=== PATIENT | male | born 1950 | race Caucasian/White ===

== ENCOUNTER → 2022-10-11 13:16 | Outpatient (BNVA) | payer MEDICARE, SELFPAY | PROVIDERS: PCP Internal Medicine; Visit Provider Hospitalist | DX: J45.40 Moderate persistent asthma, uncomplicated (principal); J30.9 Allergic rhinitis, unspecified; R91.8 Other nonspecific abnormal finding of lung field; J98.11 Atelectasis | CPT/HCPCS: 99202 ==

== ENCOUNTER 2022-11-15 10:02 | Outpatient (REF) | payer MEDICARE, SELFPAY ==
--- NOTE | 2022-11-15 | PFT_ITS ---
Forced vital capacity 96%, FEV1 102%. FEV1/FVC ratio is 77. [id number] 117% and MVV 91%. Post bronchodilator therapy, there is no significant change. Total lung capacity 93% and residual volume 103%. Diffusion capacity 100% CONCLUSION: Normal pulmonary function test. No restrictive or obstructive airway disorder and no response to bronchodilator therapy. MD YAMILA Dean/[place] / [id number]
== END 2022-11-15 10:03 | disposition home or self-care (01) ==
LOC: HO.RESP 10:02
PROVIDERS: PCP Internal Medicine; Visit Provider Hospitalist
DX: R06.00 Dyspnea, unspecified (principal)
CPT/HCPCS: 94060; 94727; 94729

== ENCOUNTER → 2023-01-06 10:08 | Outpatient (BNVA) | payer MEDICARE, SELFPAY | PROVIDERS: PCP Internal Medicine; Visit Provider Hospitalist | DX: J45.40 Moderate persistent asthma, uncomplicated (principal); J30.9 Allergic rhinitis, unspecified; R91.8 Other nonspecific abnormal finding of lung field; J98.11 Atelectasis; Z79.899 Other long term (current) drug therapy | CPT/HCPCS: 99212 ==

== ENCOUNTER 2024-01-11 09:45 | Outpatient (AMB) | payer MEDICARE, SELFPAY ==
[2024-01-11 09:48] VITALS: PULSE 83; O2SAT 98; BMI 30.3
--- NOTE | 2024-01-11 09:48 | MHC.OFFVIS ---
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 The patient also has a history of pulmonary emboli status post IVC filter after fracturing his lower extremities. This was many years ago. The patient is no longer on anticoagulation. In regards of the breathing started developing worsening shortness of breath and cough. He had been using a Pulmicort inhaler for the asthma and also had a short-acting beta agonist. 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 There were concerns that he was over using the albuterol. However in addition to that he was noted to have asymmetrical wheezing primarily on the left side. Therefore he was referred to Pulmonary. In the meantime he continues to have a cough that was not getting any better and he was evaluated by his primary care doctor sometime in June as well. He had a chest x-ray that I personally reviewed without any acute disease although he does have an area of atelectasis. We went back and look at previous CT scans including a CT scan from [address] scan of the abdomen from 2021. It appears that the left-sided lingular atelectasis has been stable and unchanged. Patient also has other pulmonary nodules that have not changed during that visit the patient also was given benzonatate with good response helping his cough overall. Right now he is feeling better although recently he was exposed to a sick contact in now having nasal congestion and has been feeling sickly. He did have a COVID testing was negative. He is now feeling a little better. He does cough up some mucus but is clear. On examination he sounds pretty clear I do not hear any wheezing at this time. Based on the fact that his CT scan has been stable with subcentimeter pulmonary nodules and stable atelectasis there is no need to do another CT scan at this time. However, the patient continues to be symptomatic and or if his pulmonary function studies are abnormal we can consider doing a CT scan at that time. 01/06/2023 the patient is here for pulmonary follow-up visit. Overall the patient feels a lot better. His respiratory status is back to normal. The patient has not had to use his rescue inhaler. The AirDuo it inhaler has been effective. The singular therapy has been also been affected. Patient also had pulmonary function studies which I personally reviewed. No significant obstructive nor restrictive ventilatory defects appreciated. The patient will and need to undergo a total knee replacement. The patient does have a history of thromboembolic disease and has an IVC filter. Therefore he has high risk for recurrent clotting. This has to be acknowledged by his orthopedic team for further management of DVT prophylaxis. 01/11/2024 the patient is here for a pulmonary follow-up visit. He is having some increasing respiratory symptoms because of the allergy season. Responds well to the AirDuo. He is getting a prescribed with the GoodRx card. He has a rescue inhaler but he tries to minimize the use. He has also using the Singulair medication that he is aware that it helps him with his allergies. He is having issues with significant arthritis. Most likely will need a total knee replacement in the near future. The patient is a difficult intubation. He also has a history of blood clots in therefore will require prolonged course of anticoagulation or thrombolytic therapy afterwards. In addition to that he is having headaches in the morning. Be reasonable to check his overnight oximetry to make sure that he is getting adequate oxygenation at nighttime. [facility] Medical History (Updated 01/11/24 @ 10:08 by Andrew Chopra MD) Asthma-COPD overlap syndrome Atelectasis of left lung Pulmonary nodules Pulmonary embolism, bilateral Chronic allergic rhinitis Asthma Surgical History (Updated 10/11/22 @ 22:02 by Andrew Chopra MD) S/P IVC filter Social History (Updated 10/11/22 @ 13:28 by FRANKLIN Mancia) Patient Tobacco Use Status: Former Tobacco user Tobacco use type: Cigarette Years Smoked: 10 Years Review of Systems Const Reports daytime sleepiness, Reports snoring and Reports weight gain Eyes Reports change in vision ENT Denies change in voice, Reports hearing loss and Reports nasal congestion Card Denies chest pain and Reports dyspnea on exertion Resp Reports cough, Reports dyspnea on exertion, Reports snoring and Denies wheezing GI Reports no additional complaints Musc Reports myalgias, Reports arthralgias and Reports limited range of motion Skin/Breast Denies rash Alexys/Lymph Denies lymphadenopathy Aller/Immun Denies wheezing Physical Exam Vital Signs: Last Vital Signs Pulse 83 01/11/24 09:48 Pulse Ox 98 01/11/24 09:48 Oxygen Delivery Method Room Air 01/11/24 09:48 BMI result Body Mass Index 30.3 Const General: comfortable Eyes General: appearance normal, both eyes and all related structures Neck Neck: Yes supple Chest Chest palpation & inspection: normal inspection of the chest Resp Effort & Inspection: normal respiratory effort Auscultation: clear to auscultation bilaterally, no crackles, no rales, no rhonchi and no wheezes Cardio Rate: regular rate Rhythm: regular rhythm Heart sounds: S1 normal heart sound present and S2 normal heart sound present GI Palpation (GI): Soft to palpation Skin General skin exam: no rashes or lesions noted Extrem General: Yes no clubbing, cyanosis or edema Assessment & Plan Assessment & Plan (1) Chronic allergic rhinitis: Code(s): J30.9 - Allergic rhinitis, unspecified Category: Medical (2) Pulmonary nodules: Comment: stable subcentemeter nodules. last checked in 2019 Code(s): R91.8 - Other nonspecific abnormal finding of lung field Category: Medical (3) Atelectasis of left lung: Comment: Lingula, chronic Code(s): J98.11 - Atelectasis Category: Medical (4) Asthma-COPD overlap syndrome: Code(s): J44.89 - Other specified chronic obstructive pulmonary disease Category: Medical Plan Airduo, use goodRX continue Singulair GAEL as needed overnight oximetry on RA F/U 8-12 months Orders: Orders Overnight Pulse Oximetry Today J44.89 - Other specified chronic obstructive pulmonary disease Coding Level of Care Code Est Pt Level 4 (95800) Diagnoses Chronic allergic rhinitis J30.9 Pulmonary nodules R91.8 Atelectasis of left lung J98.11 Asthma-COPD overlap syndrome J44.89 Time Spent (min) 17
== END 2024-01-11 10:12 | disposition home or self-care (01) ==
PROVIDERS: PCP Internal Medicine; Visit Provider Hospitalist
DX: J30.9 Allergic rhinitis, unspecified (principal); R91.8 Other nonspecific abnormal finding of lung field; J98.11 Atelectasis; J44.89 Other specified chronic obstructive pulmonary disease
CPT/HCPCS: 99214

== ENCOUNTER → 2024-01-11 09:45 | Outpatient (BNVA) | payer MEDICARE, SELFPAY | PROVIDERS: PCP Internal Medicine; Visit Provider Hospitalist | DX: J30.9 Allergic rhinitis, unspecified (principal); J98.11 Atelectasis; J44.89 Other specified chronic obstructive pulmonary disease; R91.8 Other nonspecific abnormal finding of lung field; Z95.828 Presence of other vascular implants and grafts | CPT/HCPCS: 99212 ==

== ENCOUNTER 2024-05-07 11:02 | Outpatient (AMB) | payer MEDICARE, SELFPAY ==
[2024-05-07 11:14] VITALS: BP 126/60; PULSE 77; O2SAT 94; BMI 31.3
--- NOTE | 2024-05-07 11:14 | MHC.OFFVIS ---
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 The patient also has a history of pulmonary emboli status post IVC filter after fracturing his lower extremities. This was many years ago. The patient is no longer on anticoagulation. In regards of the breathing started developing worsening shortness of breath and cough. He had been using a Pulmicort inhaler for the asthma and also had a short-acting beta agonist. Ultimately in June he had been using his short-acting beta agonist about twice a day and we saw the [employer] team member he was noted to be tachycardic. There were concerns that he was over using the albuterol. However in addition to that he was noted to have asymmetrical wheezing primarily on the left side. Therefore he was referred to Pulmonary. In the meantime he continues to have a cough that was not getting any better and he was evaluated by his primary care doctor sometime in June as well. He had a chest x-ray that I personally reviewed without any acute disease although he does have an area of atelectasis. We went back and look at previous CT scans including a CT scan from [address] scan of the abdomen from 2021. It appears that the left-sided lingular atelectasis has been stable and unchanged. Patient also has other pulmonary nodules that have not changed during that visit the patient also was given benzonatate with good response helping his cough overall. Right now he is feeling better although recently he was exposed to a sick contact in now having nasal congestion and has been feeling sickly. He did have a COVID testing was negative. He is now feeling a little better. He does cough up some mucus but is clear. On examination he sounds pretty clear I do not hear any wheezing at this time. Based on the fact that his CT scan has been stable with subcentimeter pulmonary nodules and stable atelectasis there is no need to do another CT scan at this time. However, the patient continues to be symptomatic and or if his pulmonary function studies are abnormal we can consider doing a CT scan at that time. 01/06/2023 the patient is here for pulmonary follow-up visit. Overall the patient feels a lot better. His respiratory status is back to normal. The patient has not had to use his rescue inhaler. The AirDuo it inhaler has been effective. The singular therapy has been also been affected. Patient also had pulmonary function studies which I personally reviewed. No significant obstructive nor restrictive ventilatory defects appreciated. The patient will and need to undergo a total knee replacement. The patient does have a history of thromboembolic disease and has an IVC filter. Therefore he has high risk for recurrent clotting. This has to be acknowledged by his orthopedic team for further management of DVT prophylaxis. 01/11/2024 the patient is here for a pulmonary follow-up visit. He is having some increasing respiratory symptoms because of the allergy season. Responds well to the AirDuo. He is getting a prescribed with the GoodRx card. He has a rescue inhaler but he tries to minimize the use. He has also using the Singulair medication that he is aware that it helps him with his allergies. He is having issues with significant arthritis. Most likely will need a total knee replacement in the near future. The patient is a difficult intubation. He also has a history of blood clots in therefore will require prolonged course of anticoagulation or thrombolytic therapy afterwards. In addition to that he is having headaches in the morning. Be reasonable to check his overnight oximetry to make sure that he is getting adequate oxygenation at nighttime. 05/07/2024 the patient is here for a pulmonary follow-up visit. The patient has worsening exertion. He did follow-up with Cardiology. He did not right left heart catheterization. The right sided pressures were reassuring. In addition to that the left heart catheterization was also reassuring. The patient therefore was told that he needed to lose weight because of the increased weight resulting in some shortness of breath. As far as his respiratory medications he does have the AirDuo but he does not use it all the time. I did encourage him to use it at least every morning. The patient is having some pleuritic chest discomfort on the right side. Moderate severity. Does hurt when he takes a deep breath in or coughs or sneezes. Feels like he pulled something when he had a sneeze a 1 point. Ensure this can be the case. He has not had any imaging studies. However, with the ongoing shortness of breath in the fact that he has had blood clots in the past will go ahead and request a D-dimer. Also request additional blood work. The patient will undergo blood work if his D-dimer is elevated he also now column for him to undergo a CTA. His D-dimer is negative then he will have an x-ray and zone time. He does have evidence of chronic bronchitis. The patient has been having significant chest congestion. Moderate severity. The patient will benefit from starting Daliresp to minimize any prednisone use and help him with his underlying symptoms. [facility] Medical History (Updated 05/07/24 @ 11:54 by Andrew Chopra MD) Asthma-COPD overlap syndrome Atelectasis of left lung Pulmonary nodules Pulmonary embolism, bilateral Chronic allergic rhinitis Asthma Surgical History (Updated 10/11/22 @ 22:02 by Andrew Chopra MD) S/P IVC filter Social History (Updated 10/11/22 @ 13:28 by FRANKLIN Mancia) Patient Tobacco Use Status: Former Tobacco user Tobacco use type: Cigarette Years Smoked: 10 Years Review of Systems Const Reports snoring and Reports weight gain Eyes Reports change in vision ENT Denies change in voice, Reports hearing loss and Reports nasal congestion Card Reports chest pain and Reports dyspnea on exertion Resp Reports cough, Reports pain on inspiration, Reports pain with cough, Reports dyspnea on exertion, Reports snoring and Denies wheezing GI Reports no additional complaints Musc Reports myalgias, Reports arthralgias and Reports limited range of motion Skin/Breast Denies rash Alexys/Lymph Denies lymphadenopathy Aller/Immun Denies wheezing Physical Exam Vital Signs: Last Vital Signs Pulse 77 05/07/24 11:14 BP 126/60 05/07/24 11:14 Pulse Ox 94 05/07/24 11:14 Oxygen Delivery Method Room Air 05/07/24 11:14 BMI result Body Mass Index 31.3 Const General: comfortable Eyes General: appearance normal, both eyes and all related structures Neck Neck: Yes supple Chest Chest palpation & inspection: tenderness rib Resp Effort & Inspection: normal respiratory effort Auscultation: clear to auscultation bilaterally, no crackles, no rales, no rhonchi and no wheezes Cardio Rate: regular rate Rhythm: regular rhythm Heart sounds: S1 normal heart sound present and S2 normal heart sound present GI Palpation (GI): Soft to palpation Skin General skin exam: no rashes or lesions noted Extrem General: Yes no clubbing, cyanosis or edema Assessment & Plan Assessment & Plan (1) Asthma-COPD overlap syndrome: Code(s): J44.89 - Other specified chronic obstructive pulmonary disease Category: Medical (2) Chronic allergic rhinitis: Code(s): J30.9 - Allergic rhinitis, unspecified Category: Medical (3) Pulmonary nodules: Comment: stable subcentemeter nodules. last checked in 2019 Code(s): R91.8 - Other nonspecific abnormal finding of lung field Category: Medical (4) Atelectasis of left lung: Comment: Lingula, chronic Code(s): J98.11 - Atelectasis Category: Medical (5) Pleuritic chest pain: Code(s): R07.81 - Pleurodynia Category: Medical Plan Bloodwork, including ddimer. If positive will need a CTA. If negative will get a CXR Consider CT chest to better address the Chest pain Continue Airduo, use goodRX continue Singulair GAEL as needed start Daliresp for chronic bronchitis F/U 2-3 months Orders: Orders Immunoglobulin E Today J44.89 - Other specified chronic obstructive pulmonary disease XR chest 2V Today R07.81 - Pleurodynia Complete Blood Count Auto Diff Today J44.89 - Other specified chronic obstructive pulmonary disease Basic Metabolic Panel Today J44.89 - Other specified chronic obstructive pulmonary disease D Dimer High Sensitivity Today J44.89 - Other specified chronic obstructive pulmonary disease Medications: New roflumilast (Daliresp) 250 mcg PO DAILY 30 tabs 11RF 30 days J44.9 - Chronic obstructive pulmonary disease, unspecified Coding Level of Care Code Est Pt Level 4 (22386) Diagnoses Asthma-COPD overlap syndrome J44.89 Chronic allergic rhinitis J30.9 Pulmonary nodules R91.8 Atelectasis of left lung J98.11 Pleuritic chest pain R07.81 Time Spent (min) 18
== END 2024-05-07 12:04 | disposition home or self-care (01) ==
PROVIDERS: PCP Internal Medicine; Visit Provider Hospitalist
DX: J44.89 Other specified chronic obstructive pulmonary disease (principal); J30.9 Allergic rhinitis, unspecified; R91.8 Other nonspecific abnormal finding of lung field; J98.11 Atelectasis; R07.81 Pleurodynia
CPT/HCPCS: 99214

== ENCOUNTER 2024-05-07 11:02 | Outpatient (REF) | payer MEDICARE, SELFPAY ==
[2024-05-07 12:20] LABS: MANUAL DIFF FLAG NO
[2024-05-07 13:29] LABS: Basophils Absolute Auto 0.1 X10*3/uL (0.0-0.2); Basophils Percent Auto 0.8 % (0-2); Eosinophils Absolute Auto 0.4 X10*3/uL (0.0-0.4); Hematocrit 46.8 % (42.0-52.0); Hemoglobin 16.6 g/dl (14.0-18.0); Imm Gran Abs Auto 0.03 X10*3/uL (0.00-0.03); Imm Gran Pct Auto 0.4 % (0.0-0.4); Lymphocytes Absolute Auto 2.2 X10*3/uL (1.2-4.9); Lymphocytes Percent Auto 30.1 % (20-40); Mean Corpuscular HGB Conc 35.5 g/dl (31.0-36.0); Mean Corpuscular Hemoglobin 32.5 pg (27.0-33.0); Mean Corpuscular Volume 91.8 fL (80.0-98.0); Mean Platelet Volume 10.6 fL (9.4-12.4); Monocytes Absolute Auto 0.8 X10*3/uL (0.1-1.2); Monocytes Percent Auto 10.9 % (2-11); Neutrophils Absolute Auto 3.8 x10*3/uL (2.0-8.3); Neutrophils Percent Auto 51.8 % (45-73); Platelet Count 234 X10*3/uL (160-400); Red Cell Distribution Width 11.7 % (11.0-16.0); White Blood Count 7.3 X10*3/uL (4.8-10.8)
[2024-05-07 13:33] LABS: D Dimer High Sensitivity < 150 NG/ML
[2024-05-07 14:14] LABS: Anion Gap 13 (12-20); Blood Urea Nitrogen 13 mg/dL (9-16); Carbon Dioxide 28 mmol/L (22-29); Chloride 107 mmol/L (96-108); Estimated Glomerular Filt Rate > 60; Glucose Random 76 mg/dL (60-115); Potassium 3.9 mmol/L (3.3-5.1); Sodium 144 mmol/L (135-145)
[2024-05-08 22:28] LABS: Immunoglobulin E 390 kU/L (<OR=114)
== END 2024-05-07 11:03 | disposition home or self-care (01) ==
LOC: HO.LAB 11:02
PROVIDERS: PCP Internal Medicine; Visit Provider Hospitalist
DX: J44.89 Other specified chronic obstructive pulmonary disease (principal); J30.9 Allergic rhinitis, unspecified; R91.8 Other nonspecific abnormal finding of lung field; J98.11 Atelectasis; R07.81 Pleurodynia
CPT/HCPCS: 36415; 80048; 82785; 85025; 85379; 99212

== ENCOUNTER 2024-05-22 09:22 | Outpatient (REF) | payer MEDICARE, SELFPAY ==
--- NOTE | ~2024-05-22 | US_ITS ---
EXAMINATION: US ABDOMEN COMPLETE CLINICAL INFORMATION: Right upper quadrant pain. COMPARISON: None available. TECHNIQUE: Real-time imaging of the abdominal viscera using grayscale and color Doppler technique. FINDINGS: PANCREAS: No peripancreatic fluid collections. ABDOMINAL AORTA: The proximal, mid, and distal segments are normal in caliber. INFERIOR VENA CAVA: No color Doppler interrogation. LIVER: Liver measures 15 cm. Increased echotexture. There is a 1.6 cm lobulated anechoic lesion in the periphery of the left hepatic lobe without flow on color Doppler interrogation. Main portal vein is patent with normal hepatopedal flow direction. No intrahepatic biliary ductal dilatation. GALLBLADDER: Surgically absent. COMMON BILE DUCT: Measures 5 mm. RIGHT KIDNEY: 12 cm . No hydronephrosis. Normal echotexture . No solid or cystic lesion. Renal cortex thickness is normal.. There is normal flow on color Doppler interrogation of the renal hilum. LEFT KIDNEY: 12 cm. . Normal echotexture. No solid or cystic lesion. Renal cortex thickness is normal. Normal flow on color Doppler interrogation of the renal hilum. SPLEEN: Measures 11 cm. No focal lesion. Normal flow on color Doppler interrogation of the splenic hilum. FREE FLUID: None. US/US abdomen complete IMPRESSION: 1.6 cm cystic lesion, left hepatic lobe. Statistically may correspond to hemangioma versus cyst versus hamartoma. Status post cholecystectomy. No choledocholithiasis. No hydronephrosis. No ascites. Electronically signed by: Bryn Gatica MD 06/12/2024 07:50 AM EST
== END 2024-05-22 09:23 | disposition home or self-care (01) ==
LOC: HO.HMGCX 09:22
PROVIDERS: PCP Internal Medicine; Visit Provider Hospitalist
DX: R10.11 Right upper quadrant pain (principal)
CPT/HCPCS: 76700

== ENCOUNTER → 2024-05-22 09:25 | Outpatient (BNV) | payer MEDICARE, SELFPAY | PROVIDERS: PCP Internal Medicine; Visit Provider Radiology Diagnostic Radiology | DX: R10.11 Right upper quadrant pain (principal) | CPT/HCPCS: 76700 ==

== ENCOUNTER 2025-03-03 12:59 | Outpatient (AMB) | payer MEDICARE, SELFPAY ==
[2025-03-03 13:03] VITALS: BP 130/70; PULSE 71; O2SAT 98; BMI 30.6
--- NOTE | 2025-03-03 13:03 | A.OFFVIS_ITS ---
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 The patient also has a history of pulmonary emboli status post IVC filter after fracturing his lower extremities. This was many years ago. The patient is no longer on anticoagulation. In regards of the breathing started developing worsening shortness of breath and cough. He had been using a Pulmicort inhaler for the asthma and also had a short-acting beta agonist. 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 There were concerns that he was over using the albuterol. However in addition to that he was noted to have asymmetrical wheezing primarily on the left side. Therefore he was referred to Pulmonary. In the meantime he continues to have a cough that was not getting any better and he was evaluated by his primary care doctor sometime in June as well. He had a chest x-ray that I personally reviewed without any acute disease although he does have an area of atelectasis. We went back and look at previous CT scans including a CT scan from [address] scan of the abdomen from 2021. It appears that the left-sided lingular atelectasis has been stable and unchanged. Patient also has other pulmonary nodules that have not changed during that visit the patient also was given benzonatate with good response helping his cough overall. Right now he is feeling better although recently he was exposed to a sick contact in now having nasal congestion and has been feeling sickly. He did have a COVID testing was negative. He is now feeling a little better. He does cough up some mucus but is clear. On examination he sounds pretty clear I do not hear any wheezing at this time. Based on the fact that his CT scan has been stable with subcentimeter pulmonary nodules and stable atelectasis there is no need to do another CT scan at this time. However, the patient continues to be symptomatic and or if his pulmonary function studies are abnormal we can consider doing a CT scan at that time. 01/06/2023 the patient is here for pulmonary follow-up visit. Overall the patient feels a lot better. His respiratory status is back to normal. The patient has not had to use his rescue inhaler. The AirDuo it inhaler has been effective. The singular therapy has been also been affected. Patient also had pulmonary function studies which I personally reviewed. No significant obstructive nor restrictive ventilatory defects appreciated. The patient will and need to undergo a total knee replacement. The patient does have a history of thromboembolic disease and has an IVC filter. Therefore he has high risk for recurrent clotting. This has to be acknowledged by his orthopedic team for further management of DVT prophylaxis. 01/11/2024 the patient is here for a pulmonary follow-up visit. He is having some increasing respiratory symptoms because of the allergy season. Responds well to the AirDuo. He is getting a prescribed with the GoodRx card. He has a rescue inhaler but he tries to minimize the use. He has also using the Singulair medication that he is aware that it helps him with his allergies. He is having issues with significant arthritis. Most likely will need a total knee replacement in the near future. The patient is a difficult intubation. He also has a history of blood clots in therefore will require prolonged course of anticoagulation or thrombolytic therapy afterwards. In addition to that he is having headaches in the morning. Be reasonable to check his overnight oximetry to make sure that he is getting adequate oxygenation at nighttime. 05/07/2024 the patient is here for a pulmonary follow-up visit. The patient has worsening exertion. He did follow-up with Cardiology. He did not right left heart catheterization. The right sided pressures were reassuring. In addition to that the left heart catheterization was also reassuring. The patient therefore was told that he needed to lose weight because of the increased weight resulting in some shortness of breath. As far as his respiratory medications he does have the AirDuo but he does not use it all the time. I did encourage him to use it at least every morning. The patient is having some pleuritic chest discomfort on the right side. Moderate severity. Does hurt when he takes a deep breath in or coughs or sneezes. Feels like he pulled something when he had a sneeze a 1 point. Ensure this can be the case. He has not had any imaging studies. However, with the ongoing shortness of breath in the fact that he has had blood clots in the past will go ahead and request a D-dimer. Also request additional blood work. The patient will undergo blood work if his D-dimer is elevated he also now column for him to undergo a CTA. His D-dimer is negative then he will have an x-ray and zone time. He does have evidence of chronic bronchitis. The patient has been having significant chest congestion. Moderate severity. The patient will benefit from starting Daliresp to minimize any prednisone use and help him with his underlying symptoms. 03/03/2025 the patient is here for a pulmonary follow-up visit. He is complaining of worsening cough chest congestion and shortness of breath. He has been using the AirDuo through the [facility] program. Although is only partially helpful. He also had the evaluation for his abdominal issues and he was diagnosed with a fatty liver. Seems to be doing okay from that standpoint. The patient will go ahead and look into optimizing his respiratory therapy by switching over to Symbicort. Hopefully is covered better. In meantime the patient does complain of a congested cough. Sometimes choking him at nighttime. Moderate severity. Does have some rhonchi on exam primarily right lung more than left. Likely chronic bronchitis. His last chest x-ray was read as clear. The patient will go ahead and start azithromycin 3 times a week for 4 weeks and see if that provides some relief. If no better we will request additional imaging studies. Of note he did have a Doppler ultrasound demonstrating chronic DVT were he previously had 1 many years ago. In the meantime he does not IVC filter. He is currently working closely with vascular surgery. Will have him follow-up in 3-4 months to see his progress if any issues arise prior to that he will call for further recommendations. [facility] Medical History (Updated 07/01/24 @ 08:29 by Andrew Chopra MD) Asthma-COPD overlap syndrome Atelectasis of left lung Pulmonary nodules Pulmonary embolism, bilateral Chronic allergic rhinitis Asthma Surgical History (Updated 10/11/22 @ 22:02 by Andrew Chopra MD) S/P IVC filter Social History Patient Tobacco Use Status: Former Tobacco user Tobacco use type: Cigarette Years Smoked: 10 Years Review of Systems Const Reports snoring and Reports weight gain Eyes Reports change in vision ENT Denies change in voice, Reports hearing loss and Reports nasal congestion Card Reports dyspnea on exertion Resp Reports chest congestion, Reports cough, Reports dyspnea on exertion, Reports snoring and Denies wheezing GI Reports no additional complaints Musc Reports myalgias, Reports arthralgias and Reports limited range of motion Skin/Breast Denies rash Alexys/Lymph Denies lymphadenopathy Aller/Immun Denies wheezing Physical Exam Vital Signs: Last Vital Signs Pulse 71 03/03/25 13:03 BP 130/70 03/03/25 13:03 Pulse Ox 98 03/03/25 13:03 Oxygen Delivery Method Room Air 03/03/25 13:03 BMI result Body Mass Index 30.6 Const General: comfortable Eyes General: appearance normal, both eyes and all related structures Neck Neck: Yes supple Chest Chest palpation & inspection: normal inspection of the chest Resp Effort & Inspection: normal respiratory effort Auscultation: clear to auscultation bilaterally, no crackles, no rales, no rhonchi and no wheezes Cardio Rate: regular rate Rhythm: regular rhythm Heart sounds: S1 normal heart sound present and S2 normal heart sound present GI Palpation (GI): Soft to palpation Skin General skin exam: no rashes or lesions noted Extrem General: Yes no clubbing, cyanosis or edema Assessment & Plan Assessment & Plan (1) Asthma-COPD overlap syndrome: Code(s): J44.89 - Other specified chronic obstructive pulmonary disease Category: Medical (2) Chronic allergic rhinitis: Code(s): J30.9 - Allergic rhinitis, unspecified Category: Medical (3) Pulmonary nodules: Comment: stable subcentemeter nodules. last checked in 2019 Code(s): R91.8 - Other nonspecific abnormal finding of lung field Category: Medical (4) Atelectasis of left lung: Comment: Lingula, chronic Code(s): J98.11 - Atelectasis Category: Medical Plan hold Airduo, use goodRX start Symbicort start azithromycin MWF x 4 weeks continue Singulair GAEL as needed stopped Daliresp for chronic bronchitis F/U 2-3 months Medications: New budesonide-formoterol 160-4.5 mcg/actuation (Symbicort) 2 puffs inhalation BID 10.2 grams 11RF 30 days J44.89 - Other specified chronic obstructive pulmonary disease azithromycin Take 1 tablet on Monday/Monday/Monday 250 mg PO 3XW 12 tabs 0RF 28 days K21.9 - Gastro-esophageal reflux disease without esophagitis Refilled montelukast PLEASE CALL THE OFFICE TO SCHEDULE AN APPT TO SEE PHYSICIAN. 10 mg PO BEDTIME 90 tabs 3RF J45.909 - Unspecified asthma, uncomplicated Coding Level of Care Code Est Pt Level 4 (59020) Complex EM visit Add On G2211 Diagnoses Asthma-COPD overlap syndrome J44.89 Chronic allergic rhinitis J30.9 Pulmonary nodules R91.8 Atelectasis of left lung J98.11 Time Spent (min) 17
--- OUTSIDE RECORDS SUMMARY | 2025-03-03 13:20 | XMS_ITS ---
Author Name [facility] Organization Unknown Care Team Organization Name Specialty Phone Email Start Date End Da and[facility], [facility] Duncan Tay MD Primary Care 04/22/2021 03/18/2024
--- OUTSIDE RECORDS SUMMARY | 2025-03-03 13:20 | XMS_ITS | Clinical Summary ---
Author Organization [facility] [address] [facility] Address [address] [place] [address] Phone Care Team Providers Care Curtain Stitcher Name Role Phone Violeta Weinberg MD Primary Care Provider [phone] Allergies Active Allergy Reactions Criticality Noted Date Comments Other 01/27/2025 Other Reaction(s): hayfever; dog hair Medications amLODIPine (NORVASC) 5 mg tablet Take 1 tablet (5 mg total) by mouth 1 (one) time each day. 4 Active atorvastatin (LIPITOR) 20 mg tablet Take 1 tablet (20 mg total) by mouth 1 (one) time each day. Active cetirizine (ZyrTEC) 10 mg tablet Take 1 tablet (10 mg total) by mouth. 4 Active cyanocobalamin (VITAMIN B-12) 1,000 mcg tablet Take 1 tablet (1,000 mcg total) by mouth. 3 Active erythromycin 5 mg/gram (0.5 %) ophthalmic ointment APPLY SMALL AMOUNT TO RIGHT LOWER LIDS THREE TIMES A DAY 4 Active finasteride (PROSCAR) 5 mg tablet Take 1 tablet (5 mg total) by mouth. 3 Active tamsulosin (FLOMAX) 0.4 mg 24 hr capsule Take 1 capsule (0.4 mg total) by mouth. at bedtime Active roflumilast 250 mcg tablet Take 1 tablet by mouth 1 (one) time each day. 4 Active nitroglycerin (NITROSTAT) 0.4 mg SL tablet PLEASE SEE ATTACHED FOR DETAILED DIRECTIONS 4 Active montelukast (SINGULAIR) 10 mg tablet Take 1 tablet (10 mg total) by mouth at bedtime. Active Active Problems Problem Noted Date Diagnosed Date Chronic deep vein thrombosis (DVT) of lower extremity ([facility] V24, [facility] V28) 01/27/2025 Adenomatous polyp of colon 01/27/2025 Assessment & Plan (01/27/2025 9:40 AM EDT): Last colon 10/2021 (3yr) Dr. Vasquez Small bowel obstruction ([facility] V24, [facility] V2 8) 01/27/20252020 Overview (01/27/2025): Admitted at [facility] Treated conservatively Chronic GERD 01/24/2025 Difficult intubation 01/24/2025 Enlarged prostate 01/24/2025 Hypercholesterolemia 01/24/2025 Irritable bowel syndrome 01/24/2025 Assessment & Plan (01/27/2025 9:17 AM EDT): Stable Continue metamucil daily Moderate persistent asthma 01/24/2025 Class 1 obesity 01/24/2025 Seasonal allergic rhinitis 01/24/2025 Vitamin B12 deficiency 01/24/2025 Sleep apnea 01/27/2019 Overview (01/24/2025): Sleeps sitting up Encounters Date Type Department Care Team Description 01/27/2025 8:50 AM EDT Office Visit Gastroenterology - [address] [facility] [address] [address] Jamie Sanz PA Irritable bowel syndrome with both constipation and diarrhea (Primary Dx); Adenomatous polyp of colon, unspecified part of colon; Gastroesophageal reflux disease with esophagitis without hemorrhage; RUQ abdominal pain; Small bowel obstruction ([facility] V24, [facility] V28) 01/27/2025 Telephone Gastroenterology - [address] [phone] Fuad Vasquez MD 12/19/2024 Telephone Gastroenterology - [address] [place] [phone] Fuad Vasquez MD FAX from Last 3 Months Surgical History Surgery Date Site/Laterality Comments COLONOSCOPY 10/29/2021 - 11/27/2021 TA X2 , sig tics (3 yr recall) Dr. Vasquez ESOPHAGOGASTRODUODENOSCOPY 10/29/2021 - 11/27/2021 non-obstructing schatzki ring Dr. Vasquez CHOLECYSTECTOMY OTHER SURGICAL HISTORY Bilateral inguinal hernia repair UMBILICAL HERNIA REPAIR SEAN FILTER Social History Tobacco Use Types Packs/Day Years Used Date Smoking Tobacco: Former Cigarettes Smokeless Tobacco: Former Tobacco Cessation:Counseling Given: Not Answered Alcohol Use Standard Drinks/Week Comments Not Currently 0 (1 standard drink = 0.6 oz pur e alcohol) Sex and Gender Information Value Date Recorded Sex Assigned at Not on file Legal Sex Male 2:38 AM EST Gender Identity Not on file Sexual Orientation Not on file Obstetrics History Last Filed Vital Signs Vital Sign Reading Time Taken Comments Blood Pressure - - Pulse - - Temperature - - Respiratory Rate - - Oxygen Saturation - - Inhaled Oxygen Concentration - - Weight 87.5 kg (193 lb) 01/27/2025 8:19 AM EDT Height 165.1 cm (5' 5 ) 01/27/2025 8:19 AM EDT Body Mass Index 32.12 01/27/2025 8:19 AM EDT Plan of Treatment Upcoming Encounters Date Type Department Care Team (Late st Contact Info) Description 05/19/2025 9:30 AM EDT Appointment [facility] [address] [place] [id number] uFad Vasquez MD [address] [facility] [address] [place] [address] Health Maintenance Due Date Last Done Comments RSV Immunization Adult Patients (1 - Risk 60-74 years 1-dose series) 2010 Zoster Vaccines (2 of 3) 04/09/2014 02/12/2014 Abdominal Aortic Aneurysm (AAA) Screen 07/03/2022 Cholesterol Screening (Lipid Panel) 07/03/2022 Colorectal Cancer Screening: Colonoscopy 07/03/2022 Falls Risk Assessment 07/03/2022 Hepatitis C Screening 07/03/2022 Medicare Annual Wellness Visit 07/03/2022 Social Influencers of Health Screening 07/03/2022 COVID-19 Vaccine ( season) 2024 05/11/2022, 01/03/2022, 07/01/2021, Additional history exists Depression Screening 07/31/2024 Influenza Vaccine (#1) 2025 , 07/13/2023, 05/11/2022, Additional history exists DTaP,Tdap,and Td Vaccines (2 - Td or Tdap) 06/30/2025 06/30/2015 Pneumococcal Vaccine: 50+ Years Completed 07/03/2019, 04/11/2018 HIB Vaccines Aged Out No longer eligi ble based on patient's age to complete this topic HPV Vaccines Aged Out No longer eligi ble based on patient's age to complete this topic Hepatitis A Vaccines Aged Out No long er eligible based on patient's age to complete this topic Hepatitis B Vaccines Aged Out No long er eligible based on patient's age to complete this topic IPV Vaccines Aged Out No longer eligi ble based on patient's age to complete this topic MMR Vaccines Aged Out No longer eligi ble based on patient's age to complete this topic Meningococcal ACWY Vaccine Aged Out N o longer eligible based on patient's age to complete this topic Meningococcal B Vaccine Aged Out No l onger eligible based on patient's age to complete this topic RSV Immunization Patients Under 20 months Aged Out No longer eligible based on patient's age to complete this topic Varicella Vaccines Aged Out No longer eligible based on patient's age to complete this topic Insurance MEDICARE [facility] Care Teams Curtain Stitcher Relationship Specialty Start Date End Date Violeta Weinberg MD [address] [place] [address] PCP - General Internal Medicine 07/25/24
== END 2025-03-03 13:41 | disposition home or self-care (01) ==
LOC: HO.HPS 12:59
PROVIDERS: PCP Internal Medicine; Visit Provider Hospitalist
DX: J44.89 Other specified chronic obstructive pulmonary disease (principal); J30.9 Allergic rhinitis, unspecified; R91.8 Other nonspecific abnormal finding of lung field; J98.11 Atelectasis
CPT/HCPCS: 99214; G2211

== ENCOUNTER → 2025-03-03 12:59 | Outpatient (BNVA) | payer MEDICARE, SELFPAY | PROVIDERS: PCP Internal Medicine; Visit Provider Hospitalist | DX: J44.89 Other specified chronic obstructive pulmonary disease (principal); J30.9 Allergic rhinitis, unspecified; J98.11 Atelectasis; R91.8 Other nonspecific abnormal finding of lung field | CPT/HCPCS: 99212 ==

== ENCOUNTER 2025-06-24 12:58 | Outpatient (AMB) | payer MEDICARE, SELFPAY ==
[2025-06-24 13:15] VITALS: BP 124/70; PULSE 62; O2SAT 97; BMI 30.6
--- NOTE | 2025-06-24 13:15 | MHC.OFFVIS ---
Vital Signs 06/24/25 13:15 Height 5 ft 6 in Weight 189 lb 9.561 oz BMI 30.6 BP 124/70 Blood Pressure Location Lt brachial Position Sitting Pulse 62 Pulse Source Pulse Oximeter Pulse Oximetry (%) 97 Oxygen Delivery Method Room Air Intake Visit Reasons: Asthma/COPD Health Services Administrator Required: No Accompanied by: Spouse Allergies No Known Allergies Allergy (Verified 06/24/25 13:18) HPI Comments Details: The patient is a 75-year-old gentleman the with a history of asthma in addition to cardiac disease. The patient also has a history of pulmonary emboli status post IVC filter after fracturing his lower extremities. This was many years ago. The patient is no longer on anticoagulation. In regards of the breathing started developing worsening shortness of breath and cough. He had been using a Pulmicort inhaler for the asthma and also had a short-acting beta agonist. Ultimately in June he had been using his short-acting beta agonist about twice a day and we saw the market reporter he was noted to be tachycardic. There were concerns that he was over using the albuterol. However in addition to that he was noted to have asymmetrical wheezing primarily on the left side. Therefore he was referred to Pulmonary. In the meantime he continues to have a cough that was not getting any better and he was evaluated by his primary care doctor sometime in June as well. He had a chest x-ray that I personally reviewed without any acute disease although he does have an area of atelectasis. We went back and look at previous CT scans including a CT scan from [address] scan of the abdomen from 2021. It appears that the left-sided lingular atelectasis has been stable and unchanged. Patient also has other pulmonary nodules that have not changed during that visit the patient also was given benzonatate with good response helping his cough overall. Right now he is feeling better although recently he was exposed to a sick contact in now having nasal congestion and has been feeling sickly. He did have a COVID testing was negative. He is now feeling a little better. He does cough up some mucus but is clear. On examination he sounds pretty clear I do not hear any wheezing at this time. Based on the fact that his CT scan has been stable with subcentimeter pulmonary nodules and stable atelectasis there is no need to do another CT scan at this time. However, the patient continues to be symptomatic and or if his pulmonary function studies are abnormal we can consider doing a CT scan at that time. 01/06/2023 the patient is here for pulmonary follow-up visit. Overall the patient feels a lot better. His respiratory status is back to normal. The patient has not had to use his rescue inhaler. The AirDuo it inhaler has been effective. The singular therapy has been also been affected. Patient also had pulmonary function studies which I personally reviewed. No significant obstructive nor restrictive ventilatory defects appreciated. The patient will and need to undergo a total knee replacement. The patient does have a history of thromboembolic disease and has an IVC filter. Therefore he has high risk for recurrent clotting. This has to be acknowledged by his orthopedic team for further management of DVT prophylaxis. 01/11/2024 the patient is here for a pulmonary follow-up visit. He is having some increasing respiratory symptoms because of the allergy season. Responds well to the AirDuo. He is getting a prescribed with the GoodRx card. He has a rescue inhaler but he tries to minimize the use. He has also using the Singulair medication that he is aware that it helps him with his allergies. He is having issues with significant arthritis. Most likely will need a total knee replacement in the near future. The patient is a difficult intubation. He also has a history of blood clots in therefore will require prolonged course of anticoagulation or thrombolytic therapy afterwards. In addition to that he is having headaches in the morning. Be reasonable to check his overnight oximetry to make sure that he is getting adequate oxygenation at nighttime. 05/07/2024 the patient is here for a pulmonary follow-up visit. The patient has worsening exertion. He did follow-up with Cardiology. He did not right left heart catheterization. The right sided pressures were reassuring. In addition to that the left heart catheterization was also reassuring. The patient therefore was told that he needed to lose weight because of the increased weight resulting in some shortness of breath. As far as his respiratory medications he does have the AirDuo but he does not use it all the time. I did encourage him to use it at least every morning. The patient is having some pleuritic chest discomfort on the right side. Moderate severity. Does hurt when he takes a deep breath in or coughs or sneezes. Feels like he pulled something when he had a sneeze a 1 point. Ensure this can be the case. He has not had any imaging studies. However, with the ongoing shortness of breath in the fact that he has had blood clots in the past will go ahead and request a D-dimer. Also request additional blood work. The patient will undergo blood work if his D-dimer is elevated he also now column for him to undergo a CTA. His D-dimer is negative then he will have an x-ray and zone time. He does have evidence of chronic bronchitis. The patient has been having significant chest congestion. Moderate severity. The patient will benefit from starting Daliresp to minimize any prednisone use and help him with his underlying symptoms. 03/03/2025 the patient is here for a pulmonary follow-up visit. He is complaining of worsening cough chest congestion and shortness of breath. He has been using the AirDuo through the [employer] program. Although is only partially helpful. He also had the evaluation for his abdominal issues and he was diagnosed with a fatty liver. Seems to be doing okay from that standpoint. The patient will go ahead and look into optimizing his respiratory therapy by switching over to Symbicort. Hopefully is covered better. In meantime the patient does complain of a congested cough. Sometimes choking him at nighttime. Moderate severity. Does have some rhonchi on exam primarily right lung more than left. Likely chronic bronchitis. His last chest x-ray was read as clear. The patient will go ahead and start azithromycin 3 times a week for 4 weeks and see if that provides some relief. If no better we will request additional imaging studies. Of note he did have a Doppler ultrasound demonstrating chronic DVT were he previously had 1 many years ago. In the meantime he does not IVC filter. He is currently working closely with vascular surgery. Will have him follow-up in 3-4 months to see his progress if any issues arise prior to that he will call for further recommendations. 06/24/2025 the patient is here for pulmonary follow-up visit. Overall the patient is feeling better. He did try the Symbicort but it caused him to have significant palpitations and he stopped it. He did better on the AirDuo. Although the AirDuo tends to be back order he is hard to get. Therefore I will go ahead and send him Wixela to the pharmacy. If he can not get it through his insurance and get a with a good Rx card for reasonable brock. Otherwise the patient is feeling well he has continued to lose weight which is reassuring. He does follow-up with Cardiology. He is going to have another Holter done. He does have underlying sleep apnea but he could not tolerate the CPAP. We did talk about alternatives in the past. Will wait to see with the Holter shows if he does have evidence of AFib then will have to consider repeating the sleep study or readdress seeing another alternative therapies to treat his underlying obstructive sleep apnea. [facility] Medical History (Updated 06/24/25 @ 21:41 by Andrew Chopra MD) LANDEN (obstructive sleep apnea) Asthma-COPD overlap syndrome Atelectasis of left lung Pulmonary nodules Pulmonary embolism, bilateral Chronic allergic rhinitis Asthma Surgical History (Updated 10/11/22 @ 22:02 by Andrew Chopra MD) S/P IVC filter Social History Patient Tobacco Use Status: Former Tobacco user Tobacco use type: Cigarette Years Smoked: 10 Years Review of Systems Const Reports snoring and Reports weight loss Eyes Reports change in vision ENT Denies change in voice, Reports hearing loss and Reports nasal congestion Card Reports dyspnea on exertion Resp Reports chest congestion, Reports cough, Reports dyspnea on exertion, Reports snoring and Denies wheezing GI Reports no additional complaints Musc Reports myalgias, Reports arthralgias and Reports limited range of motion Skin/Breast Denies rash Alexys/Lymph Denies lymphadenopathy Aller/Immun Denies wheezing Physical Exam Vital Signs: Last Vital Signs Pulse 62 06/24/25 13:15 BP 124/70 06/24/25 13:15 Pulse Ox 97 06/24/25 13:15 Oxygen Delivery Method Room Air 06/24/25 13:15 BMI result Body Mass Index 30.6 Const General: comfortable Eyes General: appearance normal, both eyes and all related structures Neck Neck: Yes supple Chest Chest palpation & inspection: normal inspection of the chest Resp Effort & Inspection: normal respiratory effort Auscultation: clear to auscultation bilaterally, no crackles, no rales, no rhonchi and no wheezes Cardio Rate: regular rate Rhythm: regular rhythm Heart sounds: S1 normal heart sound present and S2 normal heart sound present GI Palpation (GI): Soft to palpation Skin General skin exam: no rashes or lesions noted Extrem General: Yes no clubbing, cyanosis or edema Assessment & Plan Assessment & Plan (1) Asthma-COPD overlap syndrome: Code(s): J44.89 - Other specified chronic obstructive pulmonary disease Category: Medical (2) Chronic allergic rhinitis: Code(s): J30.9 - Allergic rhinitis, unspecified Category: Medical (3) Pulmonary nodules: Comment: stable subcentemeter nodules. last checked in 2019 Code(s): R91.8 - Other nonspecific abnormal finding of lung field Category: Medical (4) Atelectasis of left lung: Comment: Lingula, chronic Code(s): J98.11 - Atelectasis Category: Medical (5) LANDEN (obstructive sleep apnea): Code(s): G47.33 - Obstructive sleep apnea (adult) (pediatric) Category: Medical Plan start Wixela continue Singulair GAEL as needed stopped Daliresp for chronic bronchitis positional sleep therapy consider repeating PSG wt management F/U 8-12 months Medications: New fluticasone propion-salmeterol 250-50 mcg/dose 1 inh inhalation Q12H 30 days 60 ea 11RF fluticasone propion-salmeterol 250-50 mcg/dose 1 inh inhalation Q12H 60 ea 11RF 30 days Coding Level of Care Code Complex visit Add On G2211 Diagnoses Asthma-COPD overlap syndrome J44.89 Chronic allergic rhinitis J30.9 Pulmonary nodules R91.8 Atelectasis of left lung J98.11 LANDEN (obstructive sleep apnea) G47.33 Time Spent (min) 17
--- OUTSIDE RECORDS SUMMARY | 2025-06-24 16:42 | XMS_ITS | Patient Health Record ---
Author Organization [facility] Address [address] [place] [address] Care Team Providers Care Drill Press Hand Name Role Phone Ruddy Mayes MD Primary Care Provider Renu moraima Gt Magi Unavailable [phone] Allergies Allergen (clinical drug ingredient) Drug/Non Drug Allergy documented on EMR Reaction Allergy Type Onset Date Status Blue Surgical Tape (uncoded) rashes Allergy Active Adhesive Tape Unknown Drug Allergy Act benson Reason For Referral No Information Medications Medication SIG (Take, Route, Frequency, Duration) Notes Start Date End Date Status Flomax 0.4 MG 1 capsule 30 minutes after the same meal each day Orally Once a day Not-Taking Fluticasone Propionate Unknown Simvastatin Active Tamsulosin HCl 0.4 MG 1 capsule 30 minut es after the same meal each day Orally Once a day Active Cialis Not-Taking Social History Tobacco use other than smoking: Question Answer Notes Are you an other tobacco user? No Problems No Known Problems Plan Of Treatment No Information Insurance Providers Payer Name Payer Address Payer Phone Subscriber Number Group Number Insured Name Patient Relationship to Insured Coverage Start Date Coverage End Date [facility] All Others [address] [place] [address] [phone] [id number] Spouse - patient is the spouse of the insured Medical (General) History Medical History History ICD Code Hiatal hernia Warts Gall bladder problems Measles Mumps Chicken pox Joint implants/screws Surgical History Surgery Date(Month/Year) hernia gall bladder 07/2011 leg surgery gall stones
== END 2025-06-24 13:46 | disposition home or self-care (01) ==
LOC: HO.HPS 12:59
PROVIDERS: PCP Internal Medicine; Visit Provider Hospitalist
DX: J44.89 Other specified chronic obstructive pulmonary disease (principal); J30.9 Allergic rhinitis, unspecified; R91.8 Other nonspecific abnormal finding of lung field; J98.11 Atelectasis; G47.33 Obstructive sleep apnea (adult) (pediatric)
CPT/HCPCS: 99214; G2211

== ENCOUNTER → 2025-06-24 12:58 | Outpatient (BNVA) | payer MEDICARE, SELFPAY | PROVIDERS: PCP Internal Medicine; Visit Provider Hospitalist | DX: J44.89 Other specified chronic obstructive pulmonary disease (principal); J98.11 Atelectasis; J30.9 Allergic rhinitis, unspecified; R91.8 Other nonspecific abnormal finding of lung field; G47.33 Obstructive sleep apnea (adult) (pediatric); Z95.828 Presence of other vascular implants and grafts | CPT/HCPCS: 99212 ==